=== PATIENT | male | born 1965 | race Caucasian/White ===

== ENCOUNTER → 2023-06-30 18:29 | Outpatient (REF) | payer OTHER, SELFPAY | LOC: MRI 3T 18:29 | PROVIDERS: ATTENDING PHYSICIAN Urology; FAMILY PHYSICIAN Internal Medicine | DX: R97.20 Elevated prostate specific antigen [PSA] (principal) | CPT/HCPCS: 70030; 72197; A9575 ==

== ENCOUNTER 2023-07-06 06:24 | Emergency (ER) | payer OTHER, SELFPAY ==
[2023-07-06 06:25] VITALS: BP 134/84
--- NOTE | 2023-07-06 07:16 | ED.GENMED ---
History of Present Illness
General
Chief Complaint: Male Genito-Urinary Symptoms
Source: patient
Exam Limitations: none
Time Seen by Provider: 07/06/23 07:03
Travel History
Have you had any contact with someone who has COVID-19?: No
Do you have any symptoms of coronavirus? Fever > 100 degrees, chills, cough, shortness of breath, sore throat, loss of taste or smell, muscle aches, or headache?: No
History of Present Illness
History of Present Illness:
See MDM
Past History
Past History
ED Past Medical History: Other (BPH)
ED Past Surgical History: Orthopedic
Social History
Tobacco: Smoker
Alcohol: Occasional
Drug: None
Personal:
Living: with family
Phy Exam
Physical Exam
Physical Exam:
See MDM
Course
Orders/Labs/Results
Orders:
Orders
07/06/23 07:16
CT Abd/pel Without Iv Or Oral Urgent
Comment:
Reason For Exam: R groin pain
07/06/23 07:38
Urinalysis Reflex To Culture Urgent
Date Specimen was Collected: 07/06/23
Time Specimen was Collected: 07:36
Urine Microscopic Reflex Cult Urgent
Abnormal Lab Results
07/06/23
07:38
Urine Ketones 3+ A
(Negative)
Ur Occult Blood Reflex Trace A
(Negative)
Urine Bacteria (Reflex) Few A
(Negative)
Vital Signs
Initial and Last Documented VS:
Initial Vital Signs
Temp Pulse Resp BP Pulse Ox
97.9 F 96 18 134/84 100
07/06/23 06:25 07/06/23 06:25 07/06/23 06:25 07/06/23 06:25 07/06/23 06:25
Last Documented Vital Signs
Temp Pulse Resp BP Pulse Ox
97.9 F 72 15 114/70 96
07/06/23 06:25 07/06/23 07:42 07/06/23 07:42 07/06/23 07:42 07/06/23 07:42
MDM/Problems Addressed
Differential Diagnosis Includes:
HPI and MDM Narrative:
57-year-old male presenting with right groin pain. Patient is unsure if this is related to an inguinal hernia. He states his urologist told him he has a hernia. He was lifting his heavy dog of the day and symptoms worse. He denies urinary
symptoms, nausea or vomiting. Pain is still persistent but somewhat improving
Given his history, will obtain CT rule out kidney stone versus hernia
Physical exam
General: Well appearing and non-toxic
HEENT: protecting airway
Neck: appears supple
CV: No evidence of cyanosis
Resp: No accessory muscle use
Abd: Non-distended. Tenderness to right suprapubic region and inguinal canal
Extremities: No deformities
Neuro: alert
Psych: Normal affect
Skin: Intact
Problems Addressed including Acute and Chronic Conditions affecting care:
1. Right lower abdominal pain
Acuity: acute
Prognosis: stable
Details: Discussed kidney stone versus hernia. Will obtain CT
Updates
9:26 AM because patient had to leave for prior appointment, patient given verbal instructions and I discussed that I will call him with the results
9:[address] shows concern for diverticulitis to sigmoid colon. I did call the number on file and left a message for the patient that I am prescribing antibiotics and discussed return precautions and follow-up with PCP
Differential Diagnosis (but not limited to): Kidney stone, hernia
Testing considered: Blood work
Drug therapy (if applicable): OTC meds, please see d/c instruction regarding Rx drugs
Amount and/or Complexity of Data Reviewed
Clinical info obtained from: Patient
External data reviewed: N/A
Labs I independently reviewed (but not limited to): Urinalysis negative for infection
Radiology: The CT scan was personally and independently reviewed. In addition, official CT report reviewed.
Pulse Ox: not hypoxic
EKG independently reviewed: N/A
Hydrostatic Tester: N/A
Critical Care: N/A
Risk of Complication:
Social Determinants of health: Good social support
Discussed with other providers: N/A
Escalation of Care includes Admit/Obs: After being observed in the Emergency Department, pt stable for discharge.
Occasional wrong word or 'sound a like' substitutions may have occurred due to the inherent limitations of voice recognition software. Read the chart carefully and recognize, using context, where substitutions have occurred.
*Critical Care Note
Total Time (30-74mins, 75-104mins- exclusive of procedures): Not Applicable
ED Attending Note
-
Portions of this chart may have been created with voice recognition software.� Occasional wrong word or��sound alike� substitutions may have occurred due to the inherent limitations of voice recognition software.
Discharge Plan
Departure
Patient Disposition: Home (Routine Discharge)
Date of Disposition: 07/06/23
Time of Disposition: 09:27
Patient with high blood pressure during this ER visit?: No
Discharge Problem:
Diverticulitis large intestine
Prescriptions:
New
amoxicillin-pot clavulanate 875-125 mg tablet
1 tab PO BID Qty: 14 0RF
Referrals:
Kristyn Schilling, [Family Provider] -
Interventions
Interventions:
*Risk Screen - Suicide Last Done: 07/06/23 06:25
*General Assessment Last Done: 07/06/23 06:42
*Neglect/Abuse Screening Last Done: 07/06/23 06:25
ED- Fall Risk Assessment Last Done: 07/06/23 06:42
*ED COVID-19 Vaccine History Last Done: 07/06/23 06:42
*Nursing Disposition Last Done: 07/06/23 09:33
ED-Male Genitourinary Assessment Last Done: 07/06/23 07:47
Discharge Date and Time
Discharge Date/Time: 07/06/23 09:34
Print Language: KHMER
[2023-07-06 07:42] VITALS: BP 114/70
[2023-07-06 08:06] LABS: Urine Albumin Negative (Neg - Trace); Urine Bilirubin Negative (Negative); Urine Character Clear (Clear); Urine Color Yellow; Urine Glucose Negative (Negative); Urine Ketone 3+ (Negative); Urine Leukocyte Negative (Negative); Urine Nitrite Negative (Negative); Urine Occult Blood Trace (Negative); Urine Urobilinogen Negative (Neg - 1+)
[2023-07-06 08:22] LABS: Urine Mucus Few
[2023-07-06 08:23] LABS: Urine Bacteria Few (Negative); Urine Red Blood Cell 0-2 /HPF (0-2); Urine White Cell 0-2 /HPF (0-5)
== END 2023-07-06 09:34 | disposition home or self-care (01) ==
LOC: EMR 06:24
PROVIDERS: EMERGENCY PHYSICIAN Student in an Organized Health Care Education/Training Program; FAMILY PHYSICIAN Internal Medicine
DX: K57.32 Diverticulitis of large intestine without perforation or abscess without bleeding (principal); R10.31 Right lower quadrant pain; N40.0 Benign prostatic hyperplasia without lower urinary tract symptoms; F17.200 Nicotine dependence, unspecified, uncomplicated
CPT/HCPCS: 99284; 74176; 81003; 81015

== ENCOUNTER 2023-10-03 06:33 | Day surgery (SDC) | payer OTHER, SELFPAY ==
[2023-10-03] VITALS (9 sets, daily range): BP systolic 116–150; BP diastolic 71–94; BMI 28.2
[2023-10-03] MEDS: NORMOSOL-R 1000 IV (09:02)
[2023-10-03] MEDS: TYLENOL 1000 MG PO (09:03)
--- NOTE | 2023-10-03 11:08 | OR.RPT ---
Operative Report
Operative Report
Primary Surgeon: Divina
Assisting: Tariq SIMENTAL
Pre-op Diagnosis: Right inguinal hernia, incarcerated umbilical hernia
Post-op Diagnosis: Same
Procedure Performed: Robot assisted laparoscopic repair of right inguinal and incarcerated umbilical hernias
Anesthesia Type: GETA
Specimen / Cultures: None
Estimated Blood Loss: 20cc
Complications: None immediate
Operative Findings: Right indirect defect with large cord lipoma, XL MID 3D Max; 1.5cm umbilical hernia with incarcerated fat repaired with 0 PDS stratafix suture
Date of surgery: 10/03/23
Indications:� This 57M developed symptomatic right inguinal hernia. On imaging a left inguinal hernia and an umbilical hernia were identified. He has no symptoms in the left groin and preferred to defer repair of that side. He asked that we repair
the umbilical hernia today without mesh. He was advised of the increased recurrence risk for a primary repair and agreed to proceed. Robot assisted laparoscopic repair was planned.
Description of procedure:� The patient was taken to the operating room and positioned into supine position. The patient�s abdomen was prepped and draped in standard sterile fashion. A time-out was completed verifying correct patient, procedure,
site, positioning, and implants and special equipment prior to beginning this procedure.� The hernia was manually reduced after induction. A stab incision was made in the left upper quadrant, a Veress needle was inserted and proper position was
confirmed by aspiration and saline drop test. Following this, pneumoperitoneum was created with insufflation of carbon dioxide to 12 mmHg. Then a 8mm robotic trocar was inserted above and to the left of the umbilicus. A laparoscope was inserted and
the area of initial trocar entry and Veress needle placement were both inspected and no injuries were found. Two 8mm trocars were then placed lateral to the rectus sheath under direct visualization.
Both inguinal regions were inspected and the median umbilical ligament, medial umbilical ligament, and lateral umbilical fold were identified. Attention was turned to the right groin. The peritoneum was incised transversely above the defect and a
flap was developed in the caudad direction. Ashwin�s ligament was identified ultimately dissected to its junction with the iliac vein and the space of Retzius was developed bluntly.� The dissection was continued inferiorly to the iliopubic tract,
with care taken to avoid injury to the femoral branch of the genitofemoral nerve and the lateral femoral cutaneous nerve. The cord structures were parietalized.
The direct space was inspected and a hernia was not identified. The femoral space was inspected no defect was identified.� The indirect space was inspected and a hernia was identified and reduced by gentle traction. The canal was inspected and a
large cord lipoma was identified and reduced.
Extra large right MID 3D max mesh was passed through a trocar. The mesh was placed into the preperitoneal space and moved into position to lay flat and completely cover the direct, indirect, and femoral spaces with overlap beyond the midline. The
mesh was secured into place using 2-0 vicryl suture to Ashwin�s ligament medially and laterally. Care was taken to avoid the inferolateral triangles containing the iliac vessels and genital nerves. The peritoneal flap was closed over the mesh and
secured with 2-0 monocryl stratafix suture in similar positions of safety. A 14g angiocath was used to decompress the preperitoneal space revealing good seal and all mesh in good position without folding or curling.
Attention was turned to the umbilicus. An incision was made in the peritoneum superior to the defect and the fascia and umbilical hernia were exposed. Incarcerated fat wasa reduced from the hernia. It measured 1.5cm. It was closed with 0 PDS
stratafix suture. The peritoneum was then closed with 2-0 monocryl stratafix suture.
After ensuring adequate hemostasis, the trocars were removed and the pneumoperitoneum allowed to escape. The trocar incisions were closed at the skin level using 4-0 monocryl and topical skin adhesive. All counts were correct and the patient
tolerated the procedure well and was taken to the postanesthesia care unit in stable condition.
The assistance of Tariq SIMENTAL was required due to the complexity of the procedure. During the procedure he assisted with retraction, resection, and closure of the wound.
== END 2023-10-03 12:47 | disposition home or self-care (01) ==
LOC: SDS 06:33
PROVIDERS: ATTENDING PHYSICIAN Surgery
DX: K40.90 Unilateral inguinal hernia, without obstruction or gangrene, not specified as recurrent (principal); K42.0 Umbilical hernia with obstruction, without gangrene; D17.6 Benign lipomatous neoplasm of spermatic cord
CPT/HCPCS: 49650; 49592; C1781

== ENCOUNTER 2024-03-08 14:09 | Emergency (ER) | payer OTHER, SELFPAY ==
[2024-03-08 14:20] VITALS: BP 139/84
[2024-03-08 14:43] LABS: % Basophils 0.7 % (0-2); % Eosinophils 0.7 % (0-6); % Immature Granulocytes 0.2 % (0-0.5); % Lymphocytes 21.2 % (20.5-51.1); % Monocytes 8.8 % (1.7-9.3); % Neutrophils 68.4 % (42.2-75.2); Absolute Lymphocytes 1.3 10^3/uL (1.2-3.4); Absolute Monocytes 0.5 10^3/uL (0.1-0.6); Absolute Neutrophils 4.1 10^3/uL (1.4-6.5); Hematocrit 42.5 % (39.0-52.0); Hemoglobin 14.8 g/dL (13.0-18.0); Mean Corp Hgb Conc. 34.8 g/dL (33.0-37.0); Mean Corpuscular Hgb 30.1 pg (27.0-31.0); Mean Corpuscular Volume 86.6 fL (80.0-94.0); Mean Platelet Volume 9.1 fL (7.4-10.4); Nucleated Red Blood Cells % 0 % (-); Platelet Count 156 10^3/uL (130-400); Red Blood Cell Count 4.91 10^6/uL (4.70-6.10); Red Cell Dist. Width 13.6 % (11.5-14.5)
[2024-03-08 15:00] LABS: ALT (SGPT) 24 U/L (0-50); AST (SGOT) 33 U/L (17-59); Albumin 4.4 g/dl (3.5-5.0); Alkaline Phosphatase 70 U/L (38-126); Blood Urea Nitrogen 28 mg/dl (9-20); Carbon Dioxide 28 mmol/L (22-30); Chloride 107 mmol/L (98-107); Glucose 100 mg/dl (70-99); Lipase 39 U/L (23-300); Potassium 3.6 mmol/L (3.5-5.1); Sodium 142 mmol/L (135-145); Total Bilirubin 0.6 mg/dl (0.2-1.3); Total Protein 6.6 g/dl (6.3-8.2); eGFR > 60.00
--- NOTE | 2024-03-08 15:44 | ED.GENMED ---
History of Present Illness
General
Chief Complaint: Abdominal Symptoms
Time Seen by Provider: 03/08/24 15:30
History of Present Illness
History of Present Illness:
58-year-old male presents to the emergency department for evaluation of right groin pain for the past 4 to 5 days, pain radiates from the right inguinal canal toward the flank as well as to the right testicle. He denies any painful urination or
hematuria. No fevers or chills. No nausea, vomiting, or diarrhea. Of note he had a pelvic MRI performed earlier this year revealing a peripheral prostatic lesion that was highly suspicious for neoplasm, has not yet scheduled his prostate biopsy
Past History
Past History
ED Past Medical History: Other (BPH)
ED Past Surgical History: Orthopedic
Social History
Tobacco: Smoker
Alcohol: Occasional
Drug: None
Personal:
Living: with family
Review of Systems
Review of Systems
Allergies reviewed?: Yes
All Other Systems: ROS reviewed and negative except as documented in HPI and ROS
Phy Exam
Physical Exam
Physical Exam:
GEN: Well appearing, NAD, WDWN
HEENT: Oral mucosa moist, no scleral icterus
Cardiac: Regular rate
Lung: No respiratory distress, no tachypnea
Abdomen: Soft, grossly nontender
: Normal-appearing penis and scrotum, no swelling or erythema, nontender to palpation of the right testicle
MSK: No gross deformity or injuries
Skin: Good color, no pallor or jaundice, no rashes
Neuro: AO x3, moves all extremities freely
Psych: Calm, cooperative
Course
Orders/Labs/Results
Orders:
Orders
03/08/24 14:24
Electrocardiogram (*1) Urgent
Reason for Study: Abdominal Pain
EKG- Treatment ONCE
03/08/24 14:37
Complete Blood Count/With Diff Urgent
Comprehensive Metabolic Panel Urgent
Lipase Urgent
03/08/24 15:30
Urinalysis Reflex To Culture Urgent
Date Specimen was Collected: 03/08/24
Time Specimen was Collected: 15:29
Urine Microscopic Reflex Cult Urgent
Urine Culture Urgent
RYAN Source: U
Specimen Description:
Date Specimen was Collected: 03/08/24
Time Specimen was Collected: 15:29
03/08/24 16:20
CT Abd/Pel (IV only)-DH only Urgent
Comment:
Reason For Exam: R inguinal pain
Abnormal Lab Results
03/08/24 03/08/24
14:37 15:30
BUN 28 H mg/dl
(9-20)
Creatinine 0.6 L mg/dL
(0.7-1.3)
Glucose 100 H mg/dl
(70-99)
Leukocyte Esterase Rfl 1+ A
(Negative)
Urine Bacteria (Reflex) Moderate A
(Negative)
03/08/24 14:37
03/08/24 14:37
Vital Signs
Initial and Last Documented VS:
Initial Vital Signs
Temp Pulse Resp BP Pulse Ox
98.1 F 85 16 139/84 99
03/08/24 14:20 03/08/24 14:20 03/08/24 14:20 03/08/24 14:20 03/08/24 14:20
Last Documented Vital Signs
Temp Pulse Resp BP Pulse Ox
98.1 F 53 17 134/91 97
03/08/24 14:20 03/08/24 20:00 03/08/24 20:00 03/08/24 20:00 03/08/24 18:00
MDM/Problems Addressed
MDM/Problems Addressed:
Urinalysis does show large amount of bacteriuria, imaging without clear evidence for pathology causing his pain. Although he does not have strong UTI symptoms we will treat empirically
*Critical Care Note
Total Time (30-74mins, 75-104mins- exclusive of procedures): Not Applicable
ED Attending Note
-
Portions of this chart may have been created with voice recognition software.� Occasional wrong word or��sound alike� substitutions may have occurred due to the inherent limitations of voice recognition software.
Discharge Plan
Departure
Patient Disposition: Home (Routine Discharge)
Date of Disposition: 03/08/24
Time of Disposition: 19:26
Patient with high blood pressure during this ER visit?: No
Discharge Problem:
Bacteriuria, Groin pain
Instructions: Urinary Tract Infection, Adult ED
Prescriptions:
New
sulfamethoxazole-trimethoprim [Bactrim DS] 800-160 mg tablet
1 tab PO Q12H Qty: 20 0RF
No Action
oxycodone 5 mg tablet
5 - 10 mg PO Q4HPRN PRN (Reason: moderate to severe pain) Qty: 18 0RF
Referrals:
Kristyn Schilling, DO [Family Provider] -
Interventions
Interventions:
*Risk Screen - Suicide Last Done: 03/08/24 14:20
*General Assessment Last Done: 03/08/24 17:18
*Neglect/Abuse Screening Last Done: 03/08/24 14:20
*ED COVID-19 Vaccine History Last Done: 03/08/24 17:18
*Nursing Disposition Last Done: 03/08/24 20:01
J[facility]-Aprppl-Pcmsezuezs Assessment Last Done: 03/08/24 17:18
Discharge Date and Time
Discharge Date/Time: 03/08/24 20:01
Print Language: SLOVENIAN
[2024-03-08 16:00] VITALS: BP 132/74
[2024-03-08 16:01] LABS: Urine Albumin Negative (Neg - Trace); Urine Bilirubin Negative (Negative); Urine Character Clear (Clear); Urine Color Yellow; Urine Glucose Negative (Negative); Urine Ketone Negative (Negative); Urine Leukocyte 1+ (Negative); Urine Nitrite Negative (Negative); Urine Occult Blood Negative (Negative); Urine Urobilinogen Negative (Neg - 1+)
[2024-03-08 16:19] LABS: Urine Red Blood Cell 0-2 /HPF (0-2); Urine Squamous Cell 0-2 /LPF (Few)
[2024-03-08 16:20] LABS: Urine Bacteria Moderate (Negative)
[2024-03-08 18:00] VITALS: BP 124/88
[2024-03-08 20:00] VITALS: BP 134/91
== END 2024-03-08 20:01 | disposition home or self-care (01) ==
LOC: EMR 14:09
PROVIDERS: Emergency Medicine; EMERGENCY PHYSICIAN Emergency Medicine; FAMILY PHYSICIAN Internal Medicine
DX: R82.71 Bacteriuria (principal); R10.31 Right lower quadrant pain; N40.0 Benign prostatic hyperplasia without lower urinary tract symptoms; F17.200 Nicotine dependence, unspecified, uncomplicated
CPT/HCPCS: 99284; 74177; 80053; 81003; 81015; 83690; 85025; 87086; 93005; Q9967

== ENCOUNTER 2024-07-26 06:19 | Day surgery (SDC) | payer OTHER, SELFPAY ==
[2024-07-20 08:51] LABS: Hematocrit 43.8 % (39.0-52.0); Mean Corp Hgb Conc. 34.2 g/dL (33.0-37.0); Mean Corpuscular Hgb 29.8 pg (27.0-31.0); Mean Corpuscular Volume 86.9 fL (80.0-94.0); Mean Platelet Volume 9.3 fL (7.4-10.4); Platelet Count 147 10^3/uL (130-400); Red Blood Cell Count 5.04 10^6/uL (4.70-6.10); Red Cell Dist. Width 13.1 % (11.5-14.5); White Blood Cell Count 6.1 10^3/uL (4.8-10.8)
[2024-07-20 09:09] LABS: Blood Urea Nitrogen 31 mg/dl (9-20); Calcium 9.2 mg/dl (8.4-10.2); Carbon Dioxide 25 mmol/L (22-30); Chloride 110 mmol/L (98-107); Glucose 102 mg/dl (70-99); Potassium 3.9 mmol/L (3.5-5.1); Sodium 143 mmol/L (135-145); eGFR > 60.00
[2024-07-20 14:03] VITALS: BMI 38.6
[2024-07-26 08:45] VITALS: BP 120/70
[2024-07-26 09:02] VITALS: BMI 38.6
[2024-07-26] MEDS: NEOMYCIN ENEMA 1 BOTTLE RECTAL (09:11)
[2024-07-26] MEDS: NORMOSOL-R/PLASMALYTE-A 1000 IV (09:16)
[2024-07-26 12:23] VITALS: BP 121/77
[2024-07-26 12:30] VITALS: BP 126/89
[2024-07-26 12:46] VITALS: BP 142/92
== END 2024-07-26 13:01 | disposition home or self-care (01) ==
LOC: SDS 06:19
PROVIDERS: ATTENDING PHYSICIAN Specialist; FAMILY PHYSICIAN Internal Medicine
DX: C61 Malignant neoplasm of prostate (principal); R97.20 Elevated prostate specific antigen [PSA]; R93.89 Abnormal findings on diagnostic imaging of other specified body structures
CPT/HCPCS: 55700; 76998; 80048; 85027; 88305; J1580